=== PATIENT | female | born 1985 | race Hispanic/Latino ===

== ENCOUNTER 2022-09-24 08:30 | Emergency (ER) | payer MEDICARE ==
--- OUTSIDE RECORDS SUMMARY | 2022-09-24 08:35 | XMS REPORT | Continuity of Care Document ---
:1985 Author Organization [facility] t Address [address] [place] [address] Care Team Providers Name Role Phone Dahiana Nava MD, [place] Primary Care Physician [phone] Jerzy Galindo Attending Clinician DEANGELO PIZARRO Attending Clinician Unavailable FREEMAN GRIER Attending Clinician Unavailable JEZRY FAN Attending Clinician Unavailable Draw, Clc-Bls Lab Attending Clinician Unavailable Meng TENORIO, Delvin Attending Clinician Doctor Unassigned, [place] Attending Clinician Unavailable LAMIN CARRASCO Attending Clinician Unavailable Lamin Carrasco PA-C Attending Clinician Deangelo Pizarro MD Attending Clinician Pob, Adc Lab Main Attending Clinician Unavailable Only, Adc Test Attending Clinician Unavailable Ultrasound, Ang-Mfm Attending Clinician Unavailable NIKOLAI ALMAZAN Attending Clinician Unavailable Faculty, Jeffery Rmchosmany Mfm Attending Clinician Unavailable Dahiana Nava MD, Nikolai Attending Clinician [phone], Adc Lab Attending Clinician Unavailable AkinPetey Personilola C Attending Clinician [phone] AKINSIPETEY PINTOAJMIE C Attending Clinician Unavailable Jasmin Sotomayor MD Attending Clinician JASMIN SOTOMAYOR Attending Clinician Unavailable Zuleyma Carreno Attending Clinician Unavailable Lab, Adc Fam Pob I Attending Clinician Unavailable Omaghomi OB NURSE, Omayemanne Attending Clinician DOM PANIAGUA Attending Clinician Unavailable Harley TENORIO, Rose Attending Clinician ROSE ROMERO Attending Clinician Unavailable Kaylee Hunt MD Attending Clinician 1, Pea-m Room Attending Clinician Unavailable Lab, [facility] Attending Clinician Unavailable Melissa MSN, Mily Escalera Attending Clinician KAYLEE HUNT Attending Clinician Unavailable Izaiah Zayas MD, Gordo Attending Clinician Chuck Moyer MD Attending Clinician CHUCK MOYER Attending Clinician Unavailable Teena Anthony RN Attending Clinician GRAY EUGENE Attending Clinician Unavailable Chuck Schafer MD Attending Clinician Usman Dhaliwal MD Attending Clinician Pilar Menezes Attending Clinician Jaye May MD Attending Clinician BRONWYN JOHNSON Attending Clinician Unavailable Ebrahim OB NURSE, [place] Attending Clinician IVONNE SALGADO Attending Clinician Unavailable Ivonne Salgado NP Attending Clinician Bladimir Vilchis DO Attending Clinician Ynes OB NURSE, Shana Mooney Attending Clinician SHANA QUICK Attending Clinician Unavailable Catie Jimenes DO Attending Clinician Kathryn Yepez Attending Clinician ANAYA KAPOOR Attending Clinician Unavailable Jalil RETANA, Mami Tuan Attending Clinician KAYLEE HUNT Admitting Clinician Unavailable DEANGELO PIZARRO Admitting Clinician Unavailable Moira TENORIO, Deangelo Pardo Admitting Clinician Kaylee Hunt MD Admitting Clinician IVONNE SALGADO Admitting Clinician Unavailable Payers Payer Name Policy Type Policy Number Effective Date Expiration Date S bonny MEDICARE PART A \T\ [id number] 2015 B 00:00:00 [place] [id number] 2021 00:00:00 [facility] [id number] 2021 00:00:00 [employer] [id number] (MEDICARE 00:00:00 REPLACEMENT HMO) [facility] [id number] 2021 00:00:00 Problems Condition Condition Condition Status Onset Resolution Last Treating Co mments Source Name Details Category Date Date Treatment Clinician Date History of History of Disease Active Overview : Univers -25 Formattin ity of section section 00:00: g of this [place] note Medical might be Branch different from the original. x3 Tobacco Tobacco Disease Active Univers use in use [place] 5[place] History of History of Disease Active U nivers posttrauma posttrauma 5-25 it y of tic [place] disorder 00 Medica l (PTSD) (PTSD) Branch History of History of Disease Active 2015-11 Overview : Univers depression depression 2-13 Formattin ity of 00:00: g of this [place] note Medical might be Branch different from the original. Reports stopped meds on last week 04/15/21 Allergies, Adverse Reactions, Alerts Allergy Allergy Status Severity Reaction(s) Onset Inactive Treating Comm ents Source Name Type Date Date Clinician No Known DA Active U [facility] Allergie 5-25 Clear s 00:00: [place] 00 [facility] NO KNOWN Drug Active Univers ALLERGIE Class ity of S [facility] Social History Social Habit Start Date Stop Date Quantity Comments Source History SDKS University o f Alcohol Frequency [place] M edical Branch History [facility] o f Alcohol Std Drinks [place] [facility] History [facility] o f Alcohol Binge [place] Medic al Branch Exposure to 2022-06-28 2022-07-08 Not sure University of SARS-CoV-2 (event) 00:00:00 12:18:00 [facility] Tobacco use and 2022-07-08 2022-07-08 Smokeless Universit y of exposure 00:00:00 00:00:00 tobacco non-user [facility] dical Branch Alcohol intake 2022-07-08 2022-07-08 Ex-drinker University of 00:00:00 00:00:00 (finding) [facility] Tobacco Comment 2022-07-08 2022-07-08 vapes daily Universi ty of 00:00:00 00:00:00 [facility] Cigarettes smoked 2022-07-08 2022-07-08 Univers ity of current (pack per 00:00:00 00:00:00 [facility] ) - Reported Branch History of tobacco 2021-05-09 Cigarette Smoker University of use 00:00:00 [facility] Alcohol Comment 2017-06-01 2017-06-01 social Universit y of 00:00:00 00:00:00 [facility] Sex [birth year] At [birth year] Universit y of 00:00:00 00:00:00 [facility] Smoking Status Start Date Stop Date Source Ex-smoker 2022-07-08 00:00:00 2022-07-08 00:00:00 Universi ty of [facility] Medications Ordered Filled Start Stop Current Ordering Indication Dosage Frequency Signature Comments Components Source Medication Medication Date Date Medication? Clinician (SIG) Name Name pregabalin Yes [id number] 25mg Take 1 Univers 25 mg 8 9102 capsule by ity of capsule 00:00: mouth in [place] the Medical morning Branch and 1 capsule in the evening. pregabalin Yes [id number] 25mg Take 1 Univers 25 mg 07-08 9102 capsule by ity of capsule 00:00: mouth in [place] the Medical morning Branch and 1 capsule in the evening. pregabalin Yes [id number] 25mg Take 1 Univers 25 mg 8 9102 capsule by ity of capsule 00:00: mouth in [place] 00 the Medical morning Branch and 1 capsule in the evening. pregabalin 0 Yes [id number] 25mg Take 1 Univers 25 mg 802 capsule by ity of capsule 00:00: mouth in [place] 00 the Medical morning Branch and 1 capsule in the evening. 2021-0 Yes [id number] 1{tbl} Take 1 Univers vitamin 1-22 tablet by ity of w/FA tablet 00:00: mouth [place] 00 daily. Medical Branch docusate Yes [id number] 240mg Take 1 U nivers calcium 240 1-22 capsule by it y of mg capsule 00:00: mouth [place] 00 daily as Medical needed for Branch Constipati on. ferrous Yes [id number] 325mg Take 1 Un reshma sulfate 325 1-22 tablet by ity of mg (65 mg 00:00: mouth [place] iron) 00 daily. Medical tablet Branch ibuprofen Yes [id number] 600mg Take 1 Univers 600 mg 1-22 tablet by ity of tablet 00:00: mouth [place] 00 every 6 Medical (six) Branch hours as needed (Pain). Take with food or milk. 0 Yes [id number] 1{tbl} Take 1 Univers vitamin 1-22 tablet by ity of w/FA tablet 00:00: mouth [place] 00 daily. Medical Branch docusate Yes [id number] 240mg Take 1 U nivers calcium 240 1-22 capsule by it y of mg capsule 00:00: mouth once [place] 00 daily as Medical needed for Branch Constipati on. ferrous 0 Yes [id number] 325mg Take 1 Un reshma sulfate 325 1-22 tablet by ity of mg (65 mg 00:00: mouth [place] iron) 00 daily. Medical tablet Branch ibuprofen 0 Yes [id number] 600mg Take 1 Univers 600 mg 1-22 tablet by ity of tablet 00:00: mouth [place] 00 every 6 Medical (six) Branch hours as needed (Pain). Take with food or milk. 2021-0 Yes [id number] 1{tbl} Take 1 Univers vitamin 1-22 tablet by ity of w/FA tablet 00:00: mouth [place] 00 daily. Medical Branch docusate Yes [id number] 240mg Take 1 U nivers calcium 240 1-22 capsule by it y of mg capsule 00:00: mouth once [place] 00 daily as Medical needed for Branch Constipati on. ferrous 0 Yes [id number] 325mg Take 1 Un reshma sulfate 325 1-22 tablet by ity of mg (65 mg 00:00: mouth [place] iron) 00 daily. Medical tablet Branch ibuprofen Yes [id number] 600mg Take 1 Univers 600 mg 1-22 tablet by ity of tablet 00:00: mouth [place] 00 every 6 Medical (six) Branch hours as needed (Pain). Take with food or milk. Yes [id number] 1{tbl} Take 1 Univers vitamin 1-22 tablet by ity of w/FA tablet 00:00: mouth [place] 00 daily. Medical Branch docusate Yes [id number] 240mg Take 1 U nivers calcium 240 1-22 capsule by it y of mg capsule 00:00: mouth once [place] 00 daily as Medical needed for Branch Constipati on. ferrous Yes [id number] 325mg Take 1 Un reshma sulfate 325 1-22 tablet by ity of mg (65 mg 00:00: mouth [place] iron) 00 daily. Medical tablet Branch ibuprofen Yes [id number] 600mg Take 1 Univers 600 mg 1-22 tablet by ity of tablet 00:00: mouth [place] 00 every 6 Medical (six) Branch hours as needed (Pain). Take with food or milk. acetaminoph Yes [id number] 1000mg Take 2 Univers en (TYLENOL 6-04 tablets by it y of EXTRA 00:00: mouth [place] STRENGTH) 00 every 8 Medical 500 mg (eight) Branch tablet hours. acetaminoph 0 Yes [id number] 1000mg Take 2 Univers en (TYLENOL 6-04 tablets by it y of EXTRA 00:00: mouth [place] STRENGTH) 00 every 8 Medical 500 mg (eight) Branch tablet hours. acetaminoph 0 Yes [id number] 1000mg Take 2 Univers en (TYLENOL 6-04 tablets by it y of EXTRA 00:00: mouth [place] STRENGTH) 00 every 8 Medical 500 mg (eight) Branch tablet hours. acetaminoph 2021-0 Yes [id number] 1000mg Take 2 Univers en (TYLENOL 6-04 tablets by it y of EXTRA 00:00: mouth [place] STRENGTH) 00 every 8 Medical 500 mg (eight) Branch tablet hours. Immunizations Ordered Filled Immunization Date Status Comments [facility] e Immunization Name Name Influenza Virus 2021-10-03 Completed Universit y of Vaccine Quad IM, 00:00:00 [place] Me dical Preserv and ABX Branch Free 6 MO-64 YRS TDAP 2021-10-03 Completed University 00:00:00 [facility] Influenza Virus 2021-10-03 Completed Universit y of Vaccine Quad IM, 00:00:00 [place] Me dical Preserv and ABX Branch Free 6 MO-64 YRS TDAP 2021-10-03 Completed University 00:00:00 [facility] Influenza Virus 2021-10-03 Completed Universit y of Vaccine Quad IM, 00:00:00 [place] Me dical Preserv and ABX Branch Free 6 MO-64 YRS TDAP 2021-10-03 Completed University 00:00:00 [facility] Influenza Virus 2021-10-03 Completed Universit y of Vaccine Quad IM, 00:00:00 [place] Me dical Preserv and ABX Branch Free 6 MO-64 YRS TDAP 2021-10-03 Completed University 00:00:00 [facility] TDAP (ADACEL) 2015-06-30 Completed University of VACCINE 00:00:00 [facility] TDAP (ADACEL) 2015-06-30 Completed University of VACCINE 00:00:00 [facility] TDAP (ADACEL) 2015-06-30 Completed University of VACCINE 00:00:00 [facility] TDAP (ADACEL) 2015-06-30 Completed University of VACCINE 00:00:00 [facility] Vital Signs Vital Name Observation Time Observation Value Comments Source Systolic blood 2022-07-08 16:00:00 106 mm[Hg] Univer sity of pressure [facility] Diastolic blood 2022-07-08 16:00:00 69 mm[Hg] Unive rsity of pressure [facility] Heart rate 2022-07-08 16:00:00 71 /min [facility] Body temperature 2022-07-08 16:00:00 36.39 Lulú Univ ersity [facility] [place] Body height 2022-07-08 16:00:00 152.4 cm [facility] Body weight 2022-07-08 16:00:00 53.207 kg [facility] BMI 2022-07-08 16:00:00 22.91 kg/m2 [facility] Oxygen saturation in 2022-07-08 16:00:00 99 /min University Arterial blood by [facility] Pulse oximetry Branch Procedures This patient has no known procedures. Encounters Start End Encounter Admission Attending Care Care Encounter Source Date/Time Date/Time Type Type Clinicians Facility Department ID 2021-09-30 Outpatient P [facility] [id number] Univers 02:17:54 ity of [facility] 2021-09-30 Emergency [facility] [id number] Univers 00:56:39 ity of [facility] 2021-09-29 Emergency [facility] [id number] Univers 22:26:13 ity of [facility] 2021-09-29 Emergency [facility] [id number] Univers 22:07:17 ity of [facility] 2021-09-29 Emergency [facility] [id number] Univers 19:29:32 ity of [facility] 2021-09-28 Emergency [facility] [id number] Univers 17:50:19 ity of [facility] 2021-09-28 Emergency [facility] [id number] Univers 13:11:51 ity of [facility] 2021-09-27 Emergency [facility] [id number] Univers 13:05:49 ity of [facility] 2022-09-22 2022-09-22 Telephone Jerzy Fan [facility] [id number] Univers 00:00:00 00:00:00 HEALTH [id number] it y of CLEAR 4.2.7.2.686 [facility] [id number] [place] [address] Branch OFFICE BUILDING 2022-08-18 2022-08-18 Outpatient R DEANGELO PIZARRO [facility] [id number] Univers 15:15:00 15:15:00 ity of [facility] 2022-07-23 2022-07-23 Outpatient R MARVEL [facility] [id number] Univers 14:45:00 14:45:00 FREEMAN hunt o f [facility] 2022-07-17 2022-07-17 Outpatient R JERZY FAN [facility] [id number] Univers 00:00:00 00:00:00 JERZY FAN it y of [facility] 2022-07-17 2022-07-17 Telephone Jerzy Fan WIMITESH [id number] Univers 00:00:00 00:00:00 HEALTH [id number] it y of [place] 4[place]2.7.2.686 [place] [id number] [address] OFFICE BUILDING 2022-07-15 2022-07-15 Telephone Jerzy Fan [facility] [id number] Univers 00:00:00 00:00:00 HEALTH [id number] it y of [place] 4[place]2.[place].2.686 [place] [id number] [address] OFFICE [facility] 2022-07-08 2022-07-08 Dimensional Engineer Draw, Clc-Bls Lab [facility] 1.2.8 40.114 [id number] Univers 12:30:00 12:45:00 Visit Delvin Fan HEALTH 350.1.13.10 ity [place] 4[place]2.[place].2.[place] [id number] [address] OFFICE BUILDING 2022-07-08 2022-07-08 Outpatient R MENGJERZY [facility] [id number] Univers 11:00:00 12:11:45 JERZY FAN it shaheed of [facility] 2022-07-08 2022-07-08 Office Jerzy Fan [facility] 1.2.840.114 [id number] Univers 11:00:00 12:11:45 Visit HEALTH 350.1.13.10 it y of [place] 4[place].2.[place] [id number] [address] OFFICE BUILDING 2022-07-08 2022-07-08 Outpatient R MENG, JERZY [facility] [id number] Univers 11:00:00 12:11:45 JERZY FAN it y of [facility] 2022-07-08 2022-07-08 Outpatient R MENG, JERZY [facility] [id number] Univers 11:00:00 12:11:45 MENGJERZY of [facility] 2022-07-08 2022-07-08 Orders Doctor JULIANA [id number] [id number] Univers 00:00:00 00:00:00 Only Unassigned, BLAYNE 350.1.13.10 ity of [place] [facility] 4.2.7.2.686 Dhaval as [id number] [address] 2022-06-13 2022-06-13 Outpatient DMG [facility] [id number] Devoted 03:20:00 03:20:00 [id number] Medica l Group 2022-05-28 2022-05-28 Outpatient DMG DM [id number] [facility] 09:00:00 09:00:00 [id number] Medica l Group 2022-02-26 2022-02-26 [facility] [id number] Univers 13:00:00 14:08:47 LAMIN hunt [facility] [place] 2022-02-26 2022-02-26 Office [facility] [id number] Univers 13:00:00 14:08:47 Visit Laimn KUMARI 350.1.13.10 i ty of [place] 4.2.7.2.686 [place] [id number] [address] 2022-02-26 2022-02-26 [facility] [id number] Univers 13:00:00 14:08:47 LAMIN hunt [facility] [place] 2022-02-26 2022-02-26 Telephone Deangelo Pizarro [facility] 1.2.840.114 [id number] Univers 00:00:00 00:00:00 Edvin KUMARI 350.1.13.10 i ty of [facility] 4.2.[place].2.686 [place] [id number] Ok dical [address] 2022-02-26 2022-02-26 [facility] 1.2.840.114 [id number] Univers 00:00:00 00:00:00 Lamin KUMARI 350.1.13.10 i ty of [place] 4.2.7.2.686 [place] [id number] Ok dical NAL [address] [facility] 2022-01-23 2022-01-23 Outpatient R DEANGELO PIZARRO [facility] [id number] Univers 13:15:00 13:21:35 ity of [facility] 2022-01-23 2022-01-23 Routine Deangelo Pizarro WIMITESH [id number] Univers 13:15:00 13:21:35 Cam [place] 350.1.13.10 ity of Visit [place] 4.2.7.2.[place] [id number] Ok dical NAL [address] [facility] 2021-12-30 2021-12-30 Outpatient R DEANGELO PIZARRO [facility] [id number] Univers 16:00:00 16:00:00 ity of [facility] 2021-12-30 2021-12-30 [facility] [id number] Univers 16:00:00 16:00:00 ity of [facility] 2021-12-19 2021-12-21 Inpatient P DEANGELO PIZARRO [facility] [id number] Univers 06:13:00 19:30:00 ity of [facility] 2021-12-19 2021-12-21 Hospital Deangelo Pizarro [facility] 1.2.840.114 [id number] Univers 06:13:00 19:30:00 Encounter Cam [place] 350.1.13.10 ity of [place] 4.2.7.2.686 [facility] [id number] [facility] [address] [place] 2021-12-19 2021-12-21 Inpatient P DEANGELO PIZARRO [facility] [id number] Univers 06:13:00 19:30:00 ity of [facility] 2021-12-19 2021-12-19 Surgery Deangelo Pizarro [facility] [id number] Univers 08:00:00 09:25:00 Cam [place] 350.1.13.10 i ty of [place] 4.2.7.2.686 [place] [id number] [facility] [address] [place] 2021-12-18 2021-12-18 Outpatient R DEANGELO PIZARRO [facility] [id number] Univers 16:00:00 16:42:42 ity of [facility] 2021-12-18 2021-12-18 Routine Deangelo Pizarro [facility] [id number] Univers 16:00:00 16:42:42 Edvin KENYETTA 350.1.13.10 ity of Visit [place] 4.2.7.2.686 [place] [id number] Ok dical NAL [address] [facility] 2021-12-18 2021-12-18 Dimensional Engineer Zaki, Adc Lab Main [facility] 1.2.8 40.114 [id number] Univers 15:45:00 16:00:00 Visit Deangelo Pizarro 350.1.13.10 ity of [place] 4.2.7.2.[place] [id number] Ok dicnc NAL [address] [facility] 2021-12-18 2021-12-18 Laboratory Only, Adc Test [facility] 1.2.840. 114 [id number] Univers 15:30:00 15:45:00 Only Deangelo Pizarro 350.1.13.10 ity of [place] 4.2.7.2.[place] [id number] [facility] [address] 2021-12-18 2021-12-18 Orders Doctor JULIANA 1.2.840.114 [id number] Univers 00:00:00 00:00:00 Only Unassigned, BLAYNE 350.1.13.10 ity of [place] [facility] 4.2.7.2.686 Dhaval as [id number] [facility] [address] [place] 2021-12-10 2021-12-10 Outpatient R LUNA [facility] [id number] Univers 16:30:00 17:00:29 LAMIN ity of [facility] 2021-12-10 2021-12-10 Routine Luna [facility] [id number] Univers 16:30:00 17:00:29 Lamin KUMARI 350.1.13.10 ity of Visit [place] 4.2.7.2.[place] [id number] Ok dical NAL [address] [place] [address] 2021-12-10 2021-12-10 Orders Doctor JULIANA 1.2.840.114 [id number] Univers 00:00:00 00:00:00 Only Unassigned, BLAYNE 350.1.13.10 ity of [place] [facility] 4.2.7.2.686 Dhaval as [id number] [address] 2021-12-09 2021-12-09 Outpatient R LUNA [facility] [id number] Univers 16:00:00 [facility] 2021-11-26 2021-11-26 Outpatient R MOIRA DEANGELO [facility] [id number] Univers 15:30:00 16:01:44 ity [facility] [place] 2021-11-26 2021-11-26 Routine Moira [facility] [id number] Univers 15:30:00 16:01:44 Cam [place] 350.1.13.10 ity of Visit [place] 4.2.7.2.[place] [id number] Ok dical NAL [address] [place] [address] 2021-11-20 2021-11-20 Outpatient R MOIRA [facility] [id number] Univers 11:00:00 [facility]00[facility] 2021-11-20 Outpatient R MOIRA [facility] [id number] Univers 11:00:00 11:00:00 [facility] 2021-11-20 2021-11-20 Outpatient R MOIRA DEANGELO [facility] [id number] Univers 11:00:00 11:00:00 [facility] 2021-11-06 2021-11-06 Outpatient R LUNA [facility] [id number] Univers 10:45:00 10:57:25 [facility] 2021-11-06 2021-11-06 Outpatient R LUNA [facility] [id number] Univers 10:45:00 10:57:25 [facility] 2021-11-06 2021-11-06 Routine Luna [facility] [id number] Univers 10:19:38 10:57:25 Lamin KUMARI 350.1.13.10 ity of [place] 4[place].2.[place] [id number] [address] 2021-11-05 2021-11-05 Outpatient R MOIRA [facility] [id number] Univers 15:45:00 15:45:00 ity of [facility] 2021-11-05 2021-11-05 Outpatient R MOIRA [facility] [id number] Univers 15:45:00 15:45:00 ity of [facility] 2021-11-05 2021-11-05 Outpatient R MOIRA [facility] [id number] Univers 15:45:00 15:45:00 ity [facility] [place] 2021-10-22 2021-10-22 Outpatient P MOIRA [facility] [id number] Univers 15:30:00 15:30:00 ity [facility] [place] 2021-10-22 2021-10-22 Dimensional Engineer Ultrasound, [facility] 1.2 .840.114 [id number] Univers 14:38:56 15:08:56 Visit Deangelo Pizarro Edvin [employer] CHAIR 350.1.13.10 ity [place] [id number] Dhaval as MATERNAL [id number] [facility] ical & CHILD [address] [place] [address] 2021-10-22 2021-10-22 Outpatient R MOIRA DEANGELO [facility] [id number] Univers 14:15:00 14:27:54 ity of [facility] 2021-10-22 2021-10-22 Routine Pizarro [facility] [id number] Univers 14:09:05 14:27:54 Edvin KUMARI 350.1.13.10 ity of [place] 4[place]7.2.[place] [id number] [address] 2021-10-21 2021-10-21 Outpatient R LUNA [facility] [id number] Univers 13:00:00 13:00:00 LAMIN ity [facility] [place] 2021-10-17 2021-10-17 Outpatient P [facility] [id number] Univers 11:00:00 11:00:00 ity [facility] [place] 2021-10-17 2021-10-17 Outpatient P [facility] [id number] Univers 11:00:00 11:00:00 ity [facility] [place] 2021-10-17 2021-10-17 Outpatient R DEANGELO PIZARRO [facility] [id number] Univers 10:45:00 10:45:00 ity [facility] [place] 2021-10-14 2021-10-14 Outpatient R [facility] [id number] Univers 09:00:00 13:34:47 KOUTROUVELI it y of NIKOLAI Rossi [facility] 2021-10-14 2021-10-14 [facility] [id number] Univers 09:00:00 13:34:47 KOUTROUVELI it y of SNIKOLAI [facility] 2021-10-14 2021-10-14 [facility] [id number] Univers 09:00:00 13:34:47 KOUTROUVELI it y of SNIKOLAI [facility] 2021-10-14 2021-10-14 Outpatient R DAHIANA [facility] [id number] Univers 09:00:00 13:34:47 KOUTROUVELI it y of SNIKOLAI [facility] 2021-10-14 2021-10-14 Telemedici Faculty, Jeffery [facility] 1.2.840.114 [id number] Univers 08:51:37 13:34:47 ne Visit Dahiana Boyerebony Menchaca COMMUNICATIONS DEPARTMENT CHAIR 350.1 .13.10 [facility] 4.2.7.2.686 Dhaval as MATERNAL [phone] [facility] & CHILD [address] [place] [address] 2021-10-03 2021-10-03 Outpatient DEANGELO GALVIN [facility] [id number] Univers 16:00:00 16:48:03 ity [facility] 2021-10-03 2021-10-03 Outpatient R PIZARRO, [facility] [id number] Univers 16:00:00 16:48:03 ity of [facility] 2021-10-03 2021-10-03 Outpatient R DEANGELO PIZARRO [facility] [id number] Univers 16:00:00 16:48:03 ity of [facility] 2021-10-03 2021-10-03 Routine Deangelo Pizarro [facility] 1.2.909.015 [id number] Univers 15:53:44 16:48:03 Cam [place] 350.1.13.10 ity of Visit CANAL [place]2.7.[place] [phone] Ok dical NAL 134 [facility] 2021-09-19 2021-09-19 Outpatient R DEANGELO PIZARRO [facility] [id number] Univers 09:30:00 10:14:24 ity of [facility] 2021-09-19 2021-09-19 Outpatient R DEANGELO PIZARRO [facility] [id number] Univers 09:30:00 10:14:24 ity of [facility] 2021-09-19 2021-09-19 Outpatient R [facility] [id number] Univers 09:30:00 09:30:00 ity of [facility] 2021-09-19 2021-09-19 Dimensional Engineer 2, [facility] 1.2.840.114 [id number] Univers 09:06:13 09:21:13 Visit Deangelo Pizarro [place] 350.1.13.10 ity of [place] [phone] Ok dical nal 353 [facility] 2021-09-05 2021-09-05 Outpatient R DEANGELO PIZARRO [facility] [id number] Univers 14:00:00 14:40:57 ity of [facility] 2021-09-05 2021-09-05 Initial Deangelo Pizarro [facility] 1.2.098.890 [id number] Univers 13:44:52 14:40:57 Cam [place] 350.1.13.10 ity of Visit [place].7.2.[place] [phone] Ok dical nal [address] [place] [address] 2021-09-05 2021-09-05 Outpatient R DEANGELO PIZARRO [facility] [id number] Univers 14:00:00 14:00:00 ity of [facility] 2021-09-05 2021-09-05 Telephone Deangelo Pizarro [facility] 1.2.840.114 [id number] Univers 00:00:00 00:00:00 Edvin Ia[place] 350.1.13.10 i ty of [place].7.2.[place] [phone] Me dical nal [address] [place] [address] 2021-08-09 2021-08-09 [facility] 1.2.840.114 [id number] Univers 00:00:00 00:00:00 Jamie C COMMUNICATIONS DEPARTMENT CHAIR 350.1.13.10 ity General acute hospital 4.2.7.2.686 Dhaval as MATERNAL [phone] [facility] & CHILD [address] [place] [address] 2021-08-07 2021-08-07 Outpatient R AKINSIPE, [facility] [id number] Univers 08:45:00 08:45:00 JAMIE ity o f [facility] 2021-08-07 2021-08-07 Outpatient R AKINSIPE, [facility] [id number] Univers 08:45:00 08:45:00 JAMIE ity o f [facility] 2021-08-07 2021-08-07 Outpatient R AKINSIPE, [facility] [id number] Univers 08:45:00 08:45:00 JAMIE ity o f [facility] 2021-08-07 2021-08-07 Abstract Josecheyenne, [facility] 1.2.840.114 [id number] Univers 00:00:00 00:00:00 Jamie C COMMUNICATIONS DEPARTMENT CHAIR 350.1.13.10 ity General acute hospital 4.2.7.2.686 Dhaval as MATERNAL [phone] [facility] & CHILD [address] [place] [address] 2021-08-06 2021-08-06 Dimensional Engineer Ultrasound, [facility] 1.2 .840.114 [id number] Univers 13:37:34 14:52:34 Visit Jasmin Sotomayor COMMUNICATIONS DEPARTMENT CHAIR 350.1.13.10 ity of [facility] 4.2.7.2.686 Dhaval as MATERNAL [phone] Med ical & CHILD [address] [place] [address] 2021-08-06 2021-08-06 Outpatient P [facility] [id number] Univers 14:00:00 14:00:00 ity of [facility] 2021-08-06 2021-08-06 Outpatient P SHAI, [facility] [id number] Univers 14:00:00 14:00:00 JASMIN ity of [facility] 2021-08-01 2021-08-01 Outpatient R KEMAR, [facility] [id number] Univers 12:45:00 12:45:00 JAMIE ity o f [facility] 2021-07-26 2021-07-26 Outpatient P [facility] [id number] Univers 09:45:00 09:45:00 ity of [facility] 2021-07-26 2021-07-26 Outpatient P TALBOT [facility] [id number] Univers 09:45:00 09:45:00 KOUTROUVELI it y of S, MENCHACA [facility] 2021-07-26 2021-07-26 [facility] [id number] Univers 09:45:00 09:45:00 KOUTROUVELI it y of S, MENCHACA [facility] 2021-07-26 2021-07-26 [facility] 1.2.840.114 [id number] Univers 00:00:00 00:00:00 Zuleyma SPECIALTY 350.1.13.10 ity of [place].7.2.[place] [phone] [address] 2021-07-08 2021-07-08 Laboratory Lab, Adc Fam Pob I [facility] 1.2. 840.114 [id number] Univers 19:45:58 20:05:58 Only Nohemi [facility] 350.1.13.10 ity of [place] 4.2.7.2.686 Dhaval as Professio [phone] [facility] [address] 2021-07-08 2021-07-08 Outpatient R MCKENNAMIQUEL, [facility] [id number] Univers 19:40:00 19:40:00 [facility] 2021-07-03 2021-07-03 Laboratory Only, Adc Test [facility] 1.2.840. 114 [id number] Univers 13:45:56 14:00:56 Only Rose Romero [place] 350.1.13.10 ity [facility] 4.2.7.2.686 [facility] [phone] [address] 2021-07-03 2021-07-03 Outpatient R HARLEY, [facility] [id number] Univers 13:15:00 13:15:00 ROSE [facility] 2021-07-02 2021-07-02 Outpatient R AKINSIPE, [facility] [id number] Univers 15:45:00 15:45:00 JAMIE ity o [facility] 2021-07-02 2021-07-02 Outpatient R AKINSIPE, [facility] [id number] Univers 15:45:00 15:45:00 JAMIE ity o [facility] 2021-07-02 2021-07-02 Outpatient R AKINSIPE, [facility] [id number] Univers 15:45:00 15:45:00 JAMIE ity o [facility] 2021-06-22 2021-06-22 [facility] 1.2.840.114 [id number] Univers 00:00:00 00:00:00 Jamie C COMMUNICATIONS DEPARTMENT CHAIR 350.1.13.10 ity General acute hospital 4.2.7.2.686 Dhaval as MATERNAL [phone] [facility] ical & CHILD [address] [place] [address] 2021-06-21 2021-06-21 [facility]phone [facility] 1.2.840.114 [id number] Univers 00:00:00 00:00:00 Jamie C COMMUNICATIONS DEPARTMENT CHAIR 350.1.13.10 ity General acute hospital 4.2.7.2.686 Dhaval as MATERNAL [phone] [facility] & CHILD [address] [place] [address] 2021-06-20 2021-06-20 Telephone [facility] 1.2.840.114 [id number] Univers 00:00:00 00:00:00 Kaylee Kumari 350.1.13.10 i ty [facility] 4.2.7.2.686 [place] [phone] [facility] [address] [place] 2021-06-18 2021-06-18 Hospital BLANCHE Romero 1.2.840.114 [id number] Univers 08:38:00 23:59:00 Encounter Rose Koch 350.1.13.10 ity [facility] 4.2.7.2.686 Dhaval as [phone] [facility] [address] 2021-06-18 2021-06-18 [facility] [id number] Univers 00:00:00 00:00:00 ROSE ity [facility] 2021-06-18 2021-06-18 Abstract [facility] 1.2.840.114 [id number] Univers 00:00:00 00:00:00 Jamie Avitia COMMUNICATIONS DEPARTMENT CHAIR 350.1.13.10 ity of [facility] 4.2.7.2.686 Dhaval as MATERNAL [phone] Med ical & CHILD 107 [facility] 2021-06-17 2021-06-17 Dimensional Engineer 1, [facility] 1.2. 840.114 [id number] Univers 14:09:18 14:54:18 Visit Nikolai Almazan COMMUNICATIONS DEPARTMENT CHAIR 350.1. 13.10 ity of [facility] 4.2.7.2.686 Dhaval as MATERNAL [phone] Med ical & CHILD 369 [facility] 2021-06-17 2021-06-17 Dimensional Engineer Lab, [facility] 1.2.840. 114 [id number] Univers 14:10:54 14:39:37 Visit Nikolai Almazan COMMUNICATIONS DEPARTMENT CHAIR 350.1. 13.10 ity of Mily Torres [facility] 4.2.7.2.686 [place] MATERNAL [phone] Med ical & CHILD 125 [facility] 2021-06-17 2021-06-17 Outpatient P TALBOT [facility] [id number] Univers 13:45:00 13:45:00 CYNTHIA freeman y of S, MENCHACA [facility] 2021-06-10 2021-06-10 Outpatient Jesica HUNT [facility] [id number] Univers 10:30:00 10:30:00 KAYLEE hunt [facility] 2021-06-10 2021-06-10 Outpatient Jesica HUNT [facility] [id number] Univers 10:30:00 10:30:00 KAYLEE hunt [facility] 2021-06-10 2021-06-10 Outpatient R GILBERT [facility] [id number] Univers 10:30:00 10:30:00 KAYLEE [facility] 2021-06-04 2021-06-04 Routine [facility] 1.2.839.758 [id number] Univers 10:06:34 10:48:25 Jamie Avitia COMMUNICATIONS DEPARTMENT CHAIR 350.1.13.10 ity of Visit [facility] 4.2.7.2.686 Dhaval as MATERNAL [phone] Med ical & CHILD [address] [place] [address] 2021-06-04 2021-06-04 Outpatient R KEMAR [facility] [id number] Univers 10:30:00 10:30:00 JAMIE hunt o f [facility] 2021-05-27 2021-05-27 Office [facility] 1.2.943.080 [id number] Univers 10:01:07 10:32:18 Visit [facility] 350.1.13.10 i ty of [place].7.2.[place] Profess[place] [phone] Ok dical [address] 2021-05-27 2021-05-27 Outpatient Jesica HUNT [facility] [id number] Univers 10:00:00 10:32:18 KAYLEE hunt [facility] 2021-05-27 2021-05-27 Outpatient Jesica HUNT [facility] [id number] Univers 10:00:00 10:32:18 KAYLEE hunt [facility] 2021-05-27 2021-05-27 Outpatient R GILBERT [facility] [id number] Univers 10:00:00 10:32:18 KAYLEE hunt [facility] 2021-05-27 2021-05-27 Outpatient R GILBERT [facility] [id number] Univers 10:00:00 10:00:00 KAYLEE hunt [facility] 2021-05-23 2021-05-23 Office Gordo Canales [facility] 1. 2.840.114 [id number] Univers 11:03:33 11:54:25 Visit Chuck Moyer [facility] 350.1.13.[address] [facility] 4.2.7.2.686 [place] [phone] [facility] [address] 2021-05-23 2021-05-23 Outpatient R MENA [facility] [id number] Univers 10:00:00 11:54:25 CHUCK hunt [facility] 2021-05-23 2021-05-23 Outpatient R MOYER [facility] [id number] Univers 10:00:00 11:54:25 CHUCK hunt [facility] 2021-05-23 2021-05-23 Outpatient R MENA [facility] [id number] Univers 10:00:00 11:54:25 CHUCK hunt [facility] 2021-05-23 2021-05-23 Outpatient R MENA [facility] [id number] Univers 10:00:00 10:00:00 CHUCK [facility] 2021-05-22 2021-05-22 Transition Darek Anthony 1.2.840.114 [id number] Univers 00:00:00 00:00:00 of Care Teena Huffman 350.1.13.10 it y of [place] 4.2.7.2.686 [place] [phone] [facility] [address] 2021-05-13 2021-05-17 [facility] 1.2.840.114 [id number] Univers 10:18:00 18:10:00 Encounter Kaylee Kumari 350.1.13.10 ity of [place]2.7.2.686 [place] [phone] [place] [address] [place] 2021-05-13 2021-05-17 Inpatient P GILBERT [facility] [id number] Univers 10:18:00 18:10:00 KAYLEE hunt [facility] 2021-05-13 2021-05-17 Inpatient P GILBERT [facility] [id number] Univers 10:18:00 18:10:00 KAYLEE shaheed [facility] 2021-05-16 2021-05-16 Outpatient R [facility] [id number] Univers 11:00:00 11:00:00 marilee [facility] 2021-05-16 2021-05-16 [facility] [id number] Univers 11:00:00 11:00:00 GRAY shaheed [facility] 2021-05-16 2021-05-16 Outpatient [facility] [id number] Univers 11:00:00 11:00:00 [facility] 2021-05-14 2021-05-14 Anesthesia [facility] 1.2.840.114 [id number] Univers 13:29:00 14:28:00 Event Chuck Kumari 350.1.13.10 i ty of [place] 4.2.7.2.686 [facility] [phone] [facility] [address] [place] 2021-05-14 2021-05-14 Outpatient R GILBERT [facility] [id number] Univers 13:30:00 13:30:00 KAYLEE shaheed [facility] 2021-05-14 2021-05-14 Outpatient R GILBERT [facility] [id number] Univers 13:30:00 13:30:00 KAYLEE shaheed [facility] 2021-05-14 2021-05-14 Outpatient R GILBERT [facility] [id number] Univers 13:30:00 13:30:00 KAYLEE [facility] 2021-05-14 2021-05-14 Outpatient R GILBERT [facility] [id number] Univers 13:30:00 13:30:00 KAYLEE [facility] 2021-05-14 2021-05-14 Surgery [facility] 1.2.619.369 [id number] Univers 12:00:00 13:03:00 Kaylee Kumari 350.1.13.10 i ty of [place].2.7.2.686 [place] [phone] [facility] [address] 2021-05-14 2021-05-14 Telephone [facility] 1.2.840.114 [id number] Univers 00:00:00 00:00:00 Kaylee Kumari 350.1.13.10 i ty of [place] 4.2.7.2.[place] [phone] Ok dical nal [address] [place] [address] 2021-05-13 2021-05-13 Outpatient R [facility] [id number] Univers 09:00:00 10:16:08 KAYLEE shaheed [facility] 2021-05-13 2021-05-13 Office [facility] 1.2.561.024 [id number] Univers 08:55:04 10:16:08 Visit Kaylee Kenyetta 350.1.13.10 i ty of [place] 4.2.7.2.686 [place] [phone] [address] 2021-05-13 2021-05-13 Outpatient R [facility] [id number] Univers 09:00:00 09:00:00 [facility] 2021-05-13 2021-05-13 Emergency [facility] 1.2.482.093 [id number] Univers 08:28:00 08:50:00 Usman Keny[place] 350.1.13.10 i ty of [place] 4.2.7.2.686 [place] [phone] [facility] [address] 2021-05-12 2021-05-12 Telephone [facility] 1.2.840.114 [id number] Univers 00:00:00 00:00:00 Kaylee Kumari 350.1.13.10 i ty of [place] 4.2.7.2.686 [place] [phone] Ok dical nal [address] [place] [address] 2021-05-09 2021-05-09 [facility]phone [facility] 1.2.840.114 [id number] Univers 00:00:00 00:00:00 Kaylee Kumari 350.1.13.10 i ty of [place].2.7.2.686 [place] [phone] Ok dical nal 204 [facility] 2021-05-07 2021-05-07 Routine [facility] 1.2.347.821 [id number] Univers 11:01:00 11:45:31 Jamie Avitia COMMUNICATIONS DEPARTMENT CHAIR 350.1.13.10 ity of Visit REGIONAL 4.2.7.2.686 Dhaval as MATERNAL [phone] [facility] & CHILD [address] [place] [address] 2021-05-07 2021-05-07 Outpatient R [facility] [id number] Univers 11:00:00 11:00:00 JAMIE hunt o f [facility] 2021-04-30 2021-05-03 [facility]patient [facility] [id number] Univers 13:44:00 13:00:00 KAYLEE marilee [facility] 2021-04-30 2021-05-03 [facility] Sewell Pilar R [facility] 1.2.840.1 14 [id number] Univers 13:44:00 13:00:00 Encounter Kaylee Hunt [place] 350.1.13.1 0 ity of AdJaye richards 4.2.7.2.686 [facility] [id number] [facility] [address] [place] 2021-05-01 2021-05-01 Surgery [facility] 1.2.845.316 [id number] Univers 13:00:00 14:00:00 Kaylee Keny[place] 350.1.13.10 i ty of [place]2.7.2.686 [place] [id number] [facility] [address] [place] 2021-04-27 2021-04-27 Emergency X ARISTIDES [facility] ERT [id number] Univers 10:34:00 12:57:00 BRONWYN ity [facility] 2021-04-27 2021-04-27 Emergency X ARISTIDES, [facility] ERT [id number] Univers 10:34:00 12:57:00 MARISELAIA ity of [facility] 2021-04-27 2021-04-27 Emergency Aristides, [facility] 1.2.840.114 [id number] Univers 10:34:00 12:57:00 [facility] 350.1.13.10 i ty [facility] 4.2.7.2.686 [place] [facility] [phone] [address] 2021-04-27 2021-04-27 [facility] 1.2.667.868 [id number] Univers 00:00:00 00:00:00 Jamie C COMMUNICATIONS DEPARTMENT CHAIR 350.1.13.10 ity of [facility] 4.2.7.2.686 Dhaval as MATERNAL [phone] [facility] & CHILD [address] [place] [address] 2021-04-26 2021-04-26 Telephone [facility] 1.2.840.114 [id number] Univers 00:00:00 00:00:00 Jamie C COMMUNICATIONS DEPARTMENT CHAIR 350.1.13.10 ity of REGIONAL 4.2.7.2.686 Dhaval as MATERNAL [phone] [facility] & [address] 2021-04-23 2021-04-23 Initial [facility] 1.2.749.479 [id number] Univers 09:53:21 11:13:57 Jamie C COMMUNICATIONS DEPARTMENT CHAIR 350.1.13.10 ity of Visit [facility] 4.2.7.2.686 Dhaval as MATERNAL [phone] [facility] & CHILD [address] [place] [address] 2021-04-23 2021-04-23 Outpatient R KEMAR [facility] [id number] Univers 09:30:00 09:56:45 JAMIE moore [facility] 2021-04-23 2021-04-23 Outpatient R KEMAR [facility] [id number] Univers 09:30:00 09:30:00 JAMIE moore [facility] 2021-04-23 2021-04-23 Orders Doctor JULIANA 1.2.840.114 [id number] Univers 00:00:00 00:00:00 Only Unassigned, BLAYNE 350.1.13.10 ity of [place] [facility] 4.2.7.2.686 Dhaval as [phone] [facility] [address] 2021-04-15 2021-04-15 Emergency X [facility] ERT [id number] Univers 12:03:00 15:09:00 IVONNE ity of [facility] 2021-04-15 2021-04-15 Emergency [facility] 1.2.580.641 [id number] Univers 12:03:00 15:09:00 Ivonne Gutierrez [place] 350.1.13.10 ity [facility] 4.2.7.2.686 [place] [phone] [facility] [address] 2021-02-18 2021-02-18 Patient Deng [facility] 1.2.840.114 [id number] Univers 00:00:00 00:00:00 Outreach Bladimir [facility] 350.1.13.10 i ty [facility] 4.2.7.2.686 [place] [phone] Ok dical [address] 2021-02-18 2021-02-18 Refill Ynes [facility] 1.2.840.114 [id number] Univers 00:00:00 00:00:00 Rosasa R COMMUNICATIONS DEPARTMENT CHAIR 350.1.13.10 ity of [facility] 4.2.7.2.686 Dhaval as MATERNAL [phone] Med ical & CHILD [address] [place] [address] 2021-02-15 2021-02-15 Telephone Ynes WIMITESH 1.2.311.770 [id number] Univers 00:00:00 00:00:00 Rostaylornda R COMMUNICATIONS DEPARTMENT CHAIR 350.1.13.10 ity of [facility] 4.2.7.2.686 Dhaval as MATERNAL [phone] [facility] ical & CHILD [address] [place] [address] 2021-02-13 2021-02-13 Office Ynes WIMITESH 1.2.840.114 [id number] Univers 09:59:07 10:25:52 Visit Nighatnda R COMMUNICATIONS DEPARTMENT CHAIR 350.1.13.10 ity of [facility] 4.2.7.2.686 Dhaval as MATERNAL [phone] Med ical & CHILD [address] [place] [address] 2021-02-13 2021-02-13 Outpatient R YNES [facility] [id number] Univers 10:15:00 10:15:00 SHANA hunt o [facility] 2021-02-13 2021-02-13 Orders Doctor JULIANA 1.2.840.114 [id number] Univers 00:00:00 00:00:00 Only Unassigned, BLAYNE 350.1.13.10 ity of [place] [facility] 4.2.7.2.686 Dhaval as [phone] [address] 2020-12-18 2020-12-18 [facility] [id number] Univers 15:30:00 15:30:00 SHANA hunt o teresa [facility] 2020-12-17 2020-12-17 Emergency [facility] 1.2.840.114 [id number] Univers 10:06:00 12:38:00 Catie Kumari 350.1.13.10 ity of [place] 4.2.7.2.686 [facility] [phone] [address] 2020-12-17 2020-12-17 [facility] 1.2.840.114 [id number] 10:06:00 12:38:00 Catie Kumari 350.1.13.10 [place] 4.2.7.2.686 [place] [id number] [facility] 2020-11-24 2020-11-24 [facility] 1.2.431.352 [id number] Univers 20:23:00 23:08:00 Pilar Kumari 350.1.13.10 i ty of [place] 4.2.7.2.686 [facility] [id number] [address] 2020-11-24 2020-11-24 Emergency [facility] 1.2.984.107 [id number] 20:23:00 23:08:00 Pilar Kumari 350.1.13.10 [place] 4.2.7.2.686 [place] [phone] [id number] 2020-11-24 2020-11-24 Orders Doctor JULIANA 1.2.840.114 [id number] 00:00:00 00:00:00 Only Unassigned, BLAYNE 350.1.13.10 [place] [facility] 4.2.7.2.686 [id number] 009 2020-11-24 2020-11-24 Orders Doctor JULIANA 1.2.840.114 [id number] 67 [facility] 00:00:00 00:00:00 Only Unassigned, BLAYNE 350.1.13.10 ity of [place] [facility] 4.2.7.2.686 Dhaval as [id number] [address] 2020-09-13 2020-09-13 Telephone [facility] 1.2.840.114 [id number] 00:00:00 00:00:00 Jamie C COMMUNICATIONS DEPARTMENT CHAIR 350.1.13.10 [facility] 4.2.7.2.686 MATERNAL [phone] & CHILD [address] [place] [address] 2020-09-13 2020-09-13 Telephone [facility] 1.2.840.114 [id number] Univers 00:00:00 00:00:00 Jamie C COMMUNICATIONS DEPARTMENT CHAIR 350.1.13.10 ity of [facility] 4.2.7.2.686 Dhaval as MATERNAL [phone] [facility] & CHILD [address] [place] [address] 2020-09-10 2020-09-10 [facility] [id number] Univers 13:48:52 14:36:30 Visit Jamie C COMMUNICATIONS DEPARTMENT CHAIR [id number] ity of [facility] [id number] Dhaval as MATERNAL [phone] [facility] ical & CHILD [address] [place] [address] 2020-09-10 2020-09-10 Outpatient R KEMAR [facility] [id number] Univers 14:15:00 14:15:00 JAMIE moore [facility] 2020-07-17 2020-07-17 Emergency [facility] [id number] [facility] 11:29:00 13:42:00 Kathryn Kumari [id number] i ty [address]2.7.2.686 [place] [phone] [facility] [address] [place] 2020-05-25 2020-05-25 [facility] [id number] Univers 13:11:48 13:26:48 Visit Jamie Avitia COMMUNICATIONS DEPARTMENT CHAIR [id number] ity of [address]686 Dhaval as MATERNAL [phone] [facility] ical & CHILD [address] [place] [address] 2020-05-25 2020-05-25 Outpatient R KEMAR [facility] [id number] Univers 13:15:00 13:15:00 JAMIE hunt o f [facility] 2020-05-25 2020-05-25 Orders Doctor JULIANA [id number] Univers 00:00:00 00:00:00 Only Unassigned, BLAYNE [id number] ity of [place] [address]2.686 Dhaval as [phone] [facility] [address] [place] 2020-04-19 2020-04-19 Outpatient R ANAYA KAPOOR [facility] [id number] Univers 14:00:00 14:00:00 ity of [facility] 2020-01-30 2020-01-30 [facility] [id number] Univers 00:00:00 00:00:00 Jamie Avitia COMMUNICATIONS DEPARTMENT CHAIR [id number] ity of [place] [id number] Dhaval as MATERNAL [phone] [facility] & CHILD [address] [place] [address] 2020-01-26 2020-01-26 [facility] [id number] Univers 15:46:21 16:52:40 Visit Jamie Avitia COMMUNICATIONS DEPARTMENT CHAIR [id number] ity of [place] [id number] Dhaval as MATERNAL [phone] [facility] & CHILD [address] [place] [address] 2020-01-26 2020-01-26 Outpatient R KEMAR [facility] [id number] Univers 16:00:00 16:00:00 JAMIE freemany o f [facility] 2020-01-26 2020-01-26 Orders Doctor JULIANA [id number] Univers 00:00:00 00:00:00 Only Unassigned, BLAYNE [id number] ity of [place] [facility] [id number] Dhaval as [phone] [address] 2019-08-15 2019-08-15 GARRICK Arora [id number] Univers 00:00:00 00:00:00 Mami Saez COMMUNICATIONS DEPARTMENT CHAIR [id number] it y of [facility] [id number] Dhaval as MATERNAL [phone] [facility] ical & CHILD [address] [place] [address] Results This patient has no known results.
[2022-09-24] MEDS ORDERED: TETRACAINE HCL 0.5% 4ML OPTH ONE (08:54)
[2022-09-24] MEDS ORDERED: GENTAMICIN 0.3% OPTH DROP 5ML ONE (09:52)
--- NOTE | 2022-09-24 09:57 | EDPHYS ---
Physician Documentation [facility] Name: Kamila Cage Age: 36 yrs Sex: Female : 1985 Arrival Date: 09/24/2022 Time: 08:33 Bed 16 Private MD: Roberta Ascencio ED Physician Srinivas Nunez HPI: 09/24 10:28 This 36 yrs old Female presents to ER via Ambulatory with complaints of Eye kb Problem. 10:28 The patient is experiencing blurred vision, floaters, pain, redness. Onset: The kb symptoms/episode began/occurred 7 day(s) ago. Duration: the symptoms are continuous. Aggravated by nothing. Alleviated by nothing. Associated signs and symptoms: Pertinent positives: None. Pertinent negatives: None. Patient does not utilize any form of vision correction. Severity of symptoms: At their worst the symptoms were moderate in the emergency department the symptoms are unchanged. The patient has experienced similar episodes in the past. The patient has not recently seen a physician. Pt reports pain, redness, blurred vision and floaters that started 7 days ago. States she has had this several times in the past and normally gets antibiotic drops from her eye dr. Called to make appt with eye doctor, but just changed insurance and was told she had to have a referral. Called PCP and is unable to get appt for weeks. . 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 - Social history:: Smoking status: Patient denies any tobacco usage or history of. ROS: 10:24 Constitutional: Negative for fever, chills, and weight loss. kb 10:24 Eyes: Positive for blurry vision, pain, redness, visual disturbance. 10:24 All other systems are negative. Exam: 09:40 Constitutional: This is a well developed, well nourished patient who is awake, alert, kb and in no acute distress. Head/Face: Normocephalic, atraumatic. ENT: Moist Mucous membranes Cardiovascular: Regular rate and rhythm with a normal S1 and S2. No gallops, murmurs, or rubs. No pulse deficits. Respiratory: Respirations even and unlabored. No increased work of breathing. Talking in full sentences Skin: Warm, dry with normal turgor. Normal color. MS/ Extremity: Pulses equal, no cyanosis. Neurovascular intact. Full, normal range of motion. Neuro: Awake and alert, GCS 15, oriented to person, place, time, and situation. Moves all extremities. Normal gait. Psych: Awake, alert, with orientation to person, place and time. Behavior, mood, and affect are within normal limits. 09:40 Eyes: Periorbital structures: appear normal, Pupils: equal, round, and reactive to light and accomodation, Extraocular movements: intact throughout, Conjunctiva: injected, bilaterally, mild, Intraocular pressure: right eye = 12mmHg, left eye = 8mmHg. Vital Signs: 08:39 BP 118 / 76; Pulse 76; Resp 17; Temp 97.6; Pulse Ox 100% ; Weight 52.16 kg; Height 5 jl7 ft. 0 in. (152.40 cm); Pain 3/10; 08:39 Body Mass Index 22.46 (52.16 kg, 152.40 cm) jl7 MDM: 08:42 Patient medically screened. kb 09:40 Data reviewed: vital signs, nurses notes. Data interpreted: Pulse oximetry: on is 100 kb %. Interpretation: normal. Counseling: I had a detailed discussion with the patient and/or guardian regarding: the historical points, exam findings, and any diagnostic results supporting the discharge/admit diagnosis, the need for outpatient follow up, an opthalmologist, to return to the emergency department if symptoms worsen or persist or if there are any questions or concerns that arise at home. 09/24 08:46 Order name: Visual Acuity; Complete Time: 09:14 kb Administered Medications: 10:17 Drug: Tetracaine Drops 0.5 % 1 drops {Note: by provider.} Route: Ophthalmic; Site: both ap3 eyes; 10:17 Drug: Gentamicin Drops 0.3 % 2 drops Route: Ophthalmic; Site: both eyes; ap3 Disposition: 21:16 Co-signature as Attending Physician, Srinivas Nunez DO I was immediately available on-site ms3 in the Emergency Department for consultation in the care of the patient.. Disposition Summary: 09/24/22 09:56 Discharge Ordered Location: Home kb Condition: Stable kb Diagnosis - Unspecified conjunctivitis kb Followup: kb - With: Emergency Department - When: As needed - Reason: Worsening of condition Followup: kb - With: Private Physician - When: 2 - 3 days - Reason: Recheck today's complaints, Continuance of care, Re-evaluation by your physician Discharge Instructions: - Discharge Summary Sheet kb - Bacterial Conjunctivitis, Adult, [id number] kb Forms: - Medication Reconciliation Form kb - Thank You Letter kb - Antibiotic Education kb - Prescription Opioid Use kb Prescriptions: - Vigamox 0.5 % Ophthalmic Drops - instill 1 drop by OPHTHALMIC route every 8 hours for 7 days; 5 milliliter; kb Refills: 0, Product Selection Permitted Signatures: Natalie Shearer FNP-C FNP-Shelley Alfred RN RN jl7 Angela Bliar RN RN ap3 Srinivas Nunez DO DO ms3 Corrections: (The following items were deleted from the chart) 10:27 09:40 Eyes: Intraocular pressure: right eye = 12mmHg, left eye = 8mmHg, [facility]
--- NOTE | 2022-09-24 09:57 | ER ---
Nurse's Notes [facility] Name: Kamila Cage Age: 36 yrs Sex: Female : 1985 Arrival Date: 09/24/2022 Time: 08:33 Bed 16 Private MD: Roberta Ascencio Diagnosis: Unspecified conjunctivitis Presentation: 09/24 08:39 Chief complaint: Patient states: 09/17/2022 started blurry vision, reports increased jl7 blurry vision and floaters since then, redness noted to bilateral eyes, denies any discharge. Coronavirus screen: Vaccine status: Patient reports being unvaccinated. Ebola Screen: No symptoms or risks identified at this time. Initial Sepsis Screen: Does the patient meet any 2 criteria? No. Patient's initial sepsis screen is negative. Does the patient have a suspected source of infection? No. Patient's initial sepsis screen is negative. Risk Assessment: Do you want to hurt yourself or someone else? Patient reports no desire to harm self or others. Onset of symptoms was September 17, 2022. 08:39 Method Of Arrival: Ambulatory jl7 08:39 Acuity: DARRIAN 4 jl7 Triage Assessment: 08:42 General: Appears in no apparent distress. uncomfortable, Behavior is calm, cooperative, jl7 appropriate for age. Pain: Complains of pain in right eye and left eye Pain currently is 3 out of 10 on a pain scale. 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 - Social history:: Smoking status: Patient denies any tobacco usage or history of. Screenin:19 Abuse screen: Denies threats or abuse. Nutritional screening: No deficits noted. ap3 Tuberculosis screening: No symptoms or risk factors identified. Fall Risk None identified. Assessment: 09:20 General: Appears in no apparent distress. uncomfortable, Behavior is calm, cooperative. ap3 Pain: Complains of pain in left eye and right eye. Neuro: Level of Consciousness is awake, alert, obeys commands, Oriented to person, place, time, situation. Cardiovascular: Patient's skin is warm and dry. Respiratory: Airway is patent Respiratory effort is even, unlabored, Respiratory pattern is regular, symmetrical. EENT: Reports blurred vision since one week. Vital Signs: 08:39 BP 118 / 76; Pulse 76; Resp 17; Temp 97.6; Pulse Ox 100% ; Weight 52.16 kg; Height 5 7 ft. 0 in. (152.40 cm); Pain 3/10; 08:39 Body Mass Index 22.46 (52.16 kg, 152.40 cm) jl7 ED Course: 08:33 Patient arrived in ED. mr 08:34 Roberta Ascencio MD is Private Physician. mr 08:38 [facility]C [facility] kb 08:38 Srinivas Nunez DO is Attending Physician. kb 08:42 Triage completed. jl7 08:42 Arm band placed on right wrist. 7 08:52 Angela Blair, VASILIY is Primary Nurse. ap3 09:20 Patient has correct armband on for positive identification. Bed in low position. Call ap3 light in reach. Side rails up X 1. Pulse ox on. NIBP on. Door closed. Noise minimized. 10:25 No provider procedures requiring assistance completed. Patient did not have IV access ap3 during this emergency room visit. Administered Medications: 10:17 Drug: Tetracaine Drops 0.5 % 1 drops {Note: by provider.} Route: Ophthalmic; Site: both ap3 eyes; 10:17 Drug: Gentamicin Drops 0.3 % 2 drops Route: Ophthalmic; Site: both eyes; ap3 Medication: 09:20 VIS not applicable for this client. ap3 Outcome: 09:56 Discharge ordered by . kb 10:25 Discharged to home ambulatory. ap3 10:25 Condition: good 10:25 Discharge instructions given to patient, Instructed on discharge instructions, follow up and referral plans. medication usage, Demonstrated understanding of instructions, follow-up care, medications, Prescriptions given X 1. 10:25 Patient left the ED. ap3 Signatures: Natalie Shearer FNP-C FNP-Lennox Aurora Pillai Shelley Mckinley RN RN jl7 Angela Blair RN RN ap3
[2022-09-24 10:40] VITALS: BP 118/76; TEMP 97.6; O2SAT 100
== END 2022-09-24 10:25 | disposition home or self-care (01) ==
LOC: ER 08:30
DX: H10.9 Unspecified conjunctivitis (principal)
CPT/HCPCS: 99283